=== PATIENT | female | born 1960 | race Caucasian/White ===

== ENCOUNTER 2018-10-10 08:00 | Outpatient (CLI) | payer MEDICAID ==
[2018-10-10 11:59] LABS: BASOPHILS # (AUTO) 0.1 10^3/uL (0.0-0.1); EOSINOPHILS # (AUTO) 0.1 10^3/uL (0.0-0.7); EOSINOPHILS % (AUTO) 1.2 %; LYMPHOCYTES # (AUTO) 1.4 10^3/uL (1.5-3.5); LYMPHOCYTES % (AUTO) 28.7 %; MEAN CORPUSCULAR HEMOGLOBIN 29.1 pg (27.0-31.0); MEAN CORPUSCULAR HGB CONC 32.4 g/dL (32.0-36.0); MEAN CORPUSCULAR VOLUME 89.8 fL (81.0-99.0); MEAN PLATELET VOLUME 10.4 fL (7.9-10.8); MONOCYTES # (AUTO) 0.3 10^3/uL (0.0-1.0); MONOCYTES % (AUTO) 5.3 %; NEUTROPHILS # (AUTO) 3.1 10^3/uL (1.5-6.6); NEUTROPHILS % (AUTO) 63.6 %; PLT - PLATELET COUNT 227 10^3/uL (130-450); RED BLOOD COUNT 4.81 10^6/uL (4.20-5.40); RED CELL DISTRIBUTION WIDTH 13.2 % (12.0-15.0); WHITE BLOOD COUNT 4.9 x10^3/uL (4.8-10.8)
[2018-10-10 12:13] LABS: BUN - BLOOD UREA NITROGEN 18 mg/dL (6-20); CALCIUM 9.3 mg/dL (8.5-10.3); CARBON DIOXIDE - CO2 26 mmol/L (21-32); CHLORIDE 105 mmol/L (101-111); CHOL/HDL RATIO 3.7 (<4.4); CHOLESTEROL 238 mg/dL; CREATININE 0.9 mg/dL (0.4-1.0); GFR - MDRD 65 (>89); GLUCOSE 96 mg/dL (70-100); HDL CHOLESTEROL 65 mg/dL; LDL CHOLESTEROL,CALCULATED 149 mg/dL; LDL/HDL RATIO 2.3 (<4.4); SODIUM 141 mmol/L (135-145); VLDL CHOLESTEROL 24 mg/dL
== END 2018-10-10 23:59 | disposition home or self-care (01) ==
LOC: LAB.N 08:00 → MERGE 09:41 → LAB.N 23:59
PROVIDERS: ATTEND Physician Assistant Medical
DX: E03.9 Hypothyroidism, unspecified (principal); E78.5 Hyperlipidemia, unspecified; F41.9 Anxiety disorder, unspecified
CPT/HCPCS: 36415; 80048; 80061; 83721; 84443; 85025

== ENCOUNTER 2018-10-10 12:36 | Outpatient (CLI) | payer MEDICAID ==
--- NOTE | 2018-10-11 09:13 | XRAY Report ---
Reason: PAIN IN R SHOULDER Procedure Date: 10/10/2018 Accession Number: [id number] / [id number] Procedure: XRN - Shoulder 2 View RT CPT Code: FULL RESULT: EXAM: RIGHT SHOULDER RADIOGRAPHY EXAM DATE: 10/10/2018 01:04 PM. CLINICAL HISTORY: Pain in right shoulder. COMPARISON: None. TECHNIQUE: 3 views. FINDINGS: Bones: No fracture or bone lesion. Joints: There is slightly widening of the acromiohumeral space, suspicious for shoulder joint effusion; otherwise, glenohumeral and acromioclavicular joints are within normal limits. Soft tissues: The visualized hemithorax is unremarkable. No soft tissue swelling or periarticular calcification. IMPRESSION: Probable small shoulder joint effusion without bony lesion or significant degenerative arthritis, nonspecific finding. RADIA
--- NOTE | 2018-10-11 09:13 | XRAY Report ---
Reason: KNEE PAIN Procedure Date: 10/10/2018 Accession Number: [id number] / [id number] Procedure: XRN - Knee 3 View BILAT CPT Code: FULL RESULT: EXAMS: 1. Right Knee Radiography 2. Left Knee Radiography EXAM DATE:10/10/2018 01:20 PM. CLINICAL HISTORY:Knee pain bilaterally for 6 months. COMPARISON: None. TECHNIQUE: 3 views each. FINDINGS: Right Knee: Bones: No fractures or bone lesions. Joints: Minimally diminished joint space with tiny periarticular spurring in the patellotrochleal space visualized; otherwise, no significant degenerative process. No effusion. No subluxations. Soft Tissues: No soft tissue swelling or calcification. Left Knee: Bones: No fractures or bone lesions. Joints: Minimally diminished joint space with tiny periarticular spurring in the patellotrochleal space visualized; otherwise, no significant degenerative process. No effusion. No subluxations. Soft Tissues: No soft tissue swelling or calcification. 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 RADIA
== END 2018-10-10 12:37 | disposition home or self-care (01) ==
LOC: DI.N 12:36
PROVIDERS: ATTEND Physician Assistant Medical
DX: M25.511 Pain in right shoulder (principal); M17.0 Bilateral primary osteoarthritis of knee

== ENCOUNTER 2018-10-25 15:19 | Outpatient (CLI) | payer MEDICAID ==
--- NOTE | 2018-11-08 10:28 | Mammography Report ---
Reason: SCREENING MAMMO Procedure Date: 10/25/2018 Accession Number: [id number] / [id number] Procedure: MGN - Screening Mammo Dig Bilat CPT Code: FULL RESULT: EXAM: Screening Mammo Dig Bilat DATE: 10/25/2018 3:46 PM CLINICAL HISTORY: Routine screening TECHNIQUE: (B) - Bilateral CC and MLO views were obtained. COMPARISON: None available. PARENCHYMAL PATTERN: (A) - The breasts demonstrate scattered fibroglandular densities bilaterally. FINDINGS: There are no suspicious calcifications or areas of distortion. In the immediate retroareolar right breast a faint nodular density is seen. A faint asymmetric density is also seen in the inferior medial midportion of the right breast, question skin related. Both breasts need repeat imaging for nipple in profile. IMPRESSION: Incomplete examination. BI-RADS category 0. RECOMMENDATION: (ADDMAM) - Recommend additional mammographic views. Bilateral true lateral views with nipple in profile. Additional spot compression views right breast. BI-RADS CATEGORY: (0) - Incomplete Examination - need additional evaluation. STANDARD QUALIFYING STATEMENTS: 1. This examination was not reviewed with the aid of Computer-Aided Detection (CAD). 2. A negative or benign imaging report should not preclude biopsy if clinically suspicious findings are present. 3. Dense breasts may obscure an underlying neoplasm. 4. This examination was reviewed without the aid of 3D breast imaging (tomosynthesis).
== END 2018-10-25 15:20 | disposition home or self-care (01) ==
LOC: DI.N 15:19
PROVIDERS: ATTEND Physician Assistant Medical
DX: Z12.31 Encounter for screening mammogram for malignant neoplasm of breast (principal); R92.8 Other abnormal and inconclusive findings on diagnostic imaging of breast
CPT/HCPCS: 77067

== ENCOUNTER 2018-11-27 07:07 | Outpatient (CLI) | payer MEDICAID ==
[2018-11-27 12:48] LABS: CHOL/HDL RATIO 2.3 (<4.4); CHOLESTEROL 155 mg/dL; HDL CHOLESTEROL 67 mg/dL; LDL CHOLESTEROL,CALCULATED 72 mg/dL; LDL/HDL RATIO 1.1 (<4.4); VLDL CHOLESTEROL 16 mg/dL
== END 2018-11-27 23:59 ==
LOC: LAB.N 07:07
PROVIDERS: ATTEND Physician Assistant Medical
DX: E78.5 Hyperlipidemia, unspecified (principal)
CPT/HCPCS: 36415; 80061; 83721

== ENCOUNTER 2019-11-21 10:42 | Outpatient (CLI) | payer MEDICAID ==
--- NOTE | 2019-11-21 16:39 | XRAY Report ---
PROCEDURE: Shoulder 3 View RT INDICATIONS: RIGHT SHOULDER PAIN TECHNIQUE: 30 views of the shoulder were acquired. COMPARISON: None. FINDINGS: Bones: Mild to moderate osteolytic changes of the glenohumeral and acromioclavicular joints with join t space narrowing and osteophytosis. Somewhat amorphous calcification in the superior acromial clavic ular joint space at the expected insertion site of the supraspinatus/infraspinatus tendons may repres ent calcific tendinosis or potentially a loose body. Soft tissues: No suspicious soft tissue calcifi cations. IMPRESSION: Degenerative changes in the glenohumeral and acromioclavicular joints with suspected loo se body versus calcific tendinosis. MRI or CT of the right shoulder is recommended. Reviewed by: Rafa Arreola MD on 11/21/2019 4:37 PM PDT Approved by: Rafa Arreola MD on 11/21/2019 4:37 PM PDT Station ID: [id number]
== END 2019-11-21 10:43 | disposition home or self-care (01) ==
LOC: DI.WCP 10:42
PROVIDERS: ATTEND Physician Assistant
DX: M19.011 Primary osteoarthritis, right shoulder (principal); R93.6 Abnormal findings on diagnostic imaging of limbs

== ENCOUNTER 2019-12-27 12:38 | Emergency (ER) | payer MEDICAID ==
--- NOTE | 2019-12-27 13:20 | ED Physician Documentation ---
PD HPI OPHTHO - Stated complaint Stated Complaint: EYE INFECTION - Chief complaint Chief Complaint: Heent - History obtained from History obtained from: Patient - Additional information Additional information: She developed a painful lesion that was quite painful on the left cheek about December 04. Subsequently got other lesions on the left upper lip and developed pain and clear drainage of the left eye without visual deficit. She has been on first doxycycline, later Augmentin and tobramycin drops without improvement. Review of Systems Constitutional: denies: Fever, Chills Ears: denies: Loss of hearing, Ear pain Nose: denies: Rhinorrhea / runny nose, Congestion PD PAST MEDICAL HISTORY - Allergies Allergies/Adverse Reactions: Allergies Allergy/AdvReac Type Severity Reaction Status Date / Time No Known Drug Allergies Allergy Verified 12/27/19 12:50 PD ED PE NORMAL - Vitals Vital signs reviewed: Yes - General General: Alert and oriented X 3, No acute distress - HEENT HEENT: PERRL, EOMI, Other (Chemosis of the left eye, there is no fluorescein uptake. She has resolving small vesicular lesions of the left side of the face, upper lip and cheek most consistent with shingles.) - Neck Neck: Supple, no meningeal sign, No bony TTP - Neuro Neuro: Alert and oriented X 3, No motor deficit, No sensory deficit, Normal speech Results - Vitals Vitals: Vital Signs - 24 hr 12/27/19 12/27/19 12:42 13:48 Temperature 36.8 C Heart Rate 87 88 Respiratory 17 16 Rate Blood Pressure 107/72 111/70 O2 Saturation 96 98 Oxygen O2 Source Room air PD MEDICAL DECISION MAKING - ED course ED course: Sounds like resolving shingles as opposed to a bacterial infection to me, it has been almost 2-1/2 weeks, so it does not have the typical appearance anymore. I do not see anything that looks like a bacterial infection though and she is well treated for same after 2 rounds of oral antibiotics and drops. We will send a VZV IgM for further elucidation. She understands that we will be done today and she will need to follow-up with her doctor for results. Departure - Departure Disposition: 01 Home, Self Care Clinical Impression: Facial rash Condition: Good Record reviewed to determine appropriate education?: Yes Instructions: ED Shingles Comments: As discussed, to me this month looks more like resolving shingles as opposed to a bacterial infection. I do not think further antibiotics are necessary at this juncture, but return if worse. Call your doctor on Monday, let her know that we sent off a send out VZV IgM for further elucidation for evaluation of whether or not you have had a recent varicella infection as I suspect this is. Discharge Date/Time: 12/27/19 13:48
[2019-12-27 13:48] VITALS: BP 111/70
== END 2019-12-27 13:48 | disposition home or self-care (01) ==
LOC: ED 12:38
DX: R21 Rash and other nonspecific skin eruption (principal); H57.12 Ocular pain, left eye; H11.422 Conjunctival edema, left eye
CPT/HCPCS: 36415; 86787; 99282; 99283

== ENCOUNTER 2020-06-25 08:56 | Outpatient (CLI) | payer MEDICAID ==
[2020-06-25 12:22] LABS: BASOPHILS # (AUTO) 0.1 10^3/uL (0.0-0.1); BASOPHILS % (AUTO) 1.2 %; EOSINOPHILS # (AUTO) 0.1 10^3/uL (0.0-0.7); EOSINOPHILS % (AUTO) 0.9 %; HCT - HEMATOCRIT 42.3 % (37.0-47.0); HGB - HEMOGLOBIN 13.8 g/dL (12.0-16.0); LYMPHOCYTES # (AUTO) 1.8 10^3/uL (1.5-3.5); LYMPHOCYTES % (AUTO) 31.1 %; MEAN CORPUSCULAR HEMOGLOBIN 29.4 pg (27.0-31.0); MEAN CORPUSCULAR HGB CONC 32.6 g/dL (32.0-36.0); MEAN CORPUSCULAR VOLUME 90.2 fL (81.0-99.0); MEAN PLATELET VOLUME 10.3 fL (7.9-10.8); MONOCYTES # (AUTO) 0.3 10^3/uL (0.0-1.0); MONOCYTES % (AUTO) 5.1 %; NEUTROPHILS # (AUTO) 3.6 10^3/uL (1.5-6.6); NEUTROPHILS % (AUTO) 61.4 %; PLT - PLATELET COUNT 227 10^3/uL (130-450); RED BLOOD COUNT 4.69 10^6/uL (4.20-5.40); WHITE BLOOD COUNT 5.9 x10^3/uL (4.8-10.8)
[2020-06-25 12:59] LABS: ALBUMIN 4.4 g/dL (3.2-5.5); ALBUMIN/GLOBULIN RATIO 1.7 (1.0-2.2); ALKALINE PHOSPHATASE 54 IU/L (42-121); ALT ALANINE AMINOTRANSFERASE 15 IU/L (10-60); AST ASPARTATE AMINOTRANSFERASE 19 IU/L (10-42); BILIRUBIN,TOTAL 0.6 mg/dL (0.2-1.0); BUN - BLOOD UREA NITROGEN 18 mg/dL (6-20); CALCIUM 9.6 mg/dL (8.5-10.3); CARBON DIOXIDE - CO2 29 mmol/L (21-32); CHLORIDE 106 mmol/L (101-111); CHOL/HDL RATIO 3.1 (<4.4); CHOLESTEROL 232 mg/dL; CREATININE 0.9 mg/dL (0.4-1.0); GFR - MDRD 64 (>89); GLUCOSE 103 mg/dL (70-100); HDL CHOLESTEROL 75 mg/dL; LDL CHOLESTEROL,CALCULATED 138 mg/dL; LDL/HDL RATIO 1.8 (<4.4); POTASSIUM 4.1 mmol/L (3.5-5.0); SODIUM 144 mmol/L (135-145); TRIGLYCERIDES 96 mg/dL; VLDL CHOLESTEROL 19 mg/dL
[2020-06-25 13:01] LABS: THYROID STIMULATING HORMONE 1.65 uIU/mL (0.34-5.60)
== END 2020-06-25 08:57 | disposition home or self-care (01) ==
LOC: LAB.N 08:56
PROVIDERS: ATTEND Registered Nurse
DX: Z01.812 Encounter for preprocedural laboratory examination (principal); S46.091S Other injury of muscle(s) and tendon(s) of the rotator cuff of right shoulder, sequela; E03.9 Hypothyroidism, unspecified; E78.00 Pure hypercholesterolemia, unspecified; F41.9 Anxiety disorder, unspecified; M75.31 Calcific tendinitis of right shoulder; M75.41 Impingement syndrome of right shoulder
CPT/HCPCS: 36415; 80053; 80061; 83721; 84443; 85025

== ENCOUNTER 2020-06-25 09:51 | Outpatient (CLI) | payer MEDICAID ==
--- NOTE | 2020-06-25 14:50 | XRAY Report ---
PROCEDURE: Shoulder 3 View RT INDICATIONS: CALCIFIC TENDONITIS OF RIGHT SHOULDER TECHNIQUE: 4 views of the shoulder were acquired. COMPARISON: 11/21/2019 FINDINGS: Bones: No acute fractures or dislocations. As before, there are mild-moderate osteoarthritic changes involving the right acromioclavicular and glenohumeral joints. There is persistent amorphous soft ti ssue calcifications in the superolateral aspect of the humeral head in the subacromial space and is c onsistent with calcific tendinosis. Intra-articular loose body remains in the differential. No suspic ious bony lesions. Visualized ribs appear intact. Soft tissues: No suspicious soft tissue calcifications. IMPRESSION: 1. Stable degenerative changes of the right glenohumeral and acromioclavicular joints. 2. Redemonstration of soft tissue calcifications within the subacromial space consistent with calcifi c tendinosis versus intra-articular loose body. Consider further evaluation with MRI. Reviewed by: Laz Pelaez MD on 06/25/2020 2:48 PM PDT Approved by: Laz Pelaez MD on 06/25/2020 2:48 PM PDT Station ID: [id number]
== END 2020-06-25 23:59 | disposition home or self-care (01) ==
LOC: DI.N 09:51
PROVIDERS: ATTEND Orthopaedic Surgery
DX: Z01.812 Encounter for preprocedural laboratory examination (principal); M19.011 Primary osteoarthritis, right shoulder; R93.6 Abnormal findings on diagnostic imaging of limbs; S46.091S Other injury of muscle(s) and tendon(s) of the rotator cuff of right shoulder, sequela; E03.9 Hypothyroidism, unspecified; E78.00 Pure hypercholesterolemia, unspecified; F41.9 Anxiety disorder, unspecified; M75.31 Calcific tendinitis of right shoulder; M75.41 Impingement syndrome of right shoulder
CPT/HCPCS: 36415; 80053; 80061; 83721; 84443; 85025

== ENCOUNTER 2020-07-10 09:12 | Outpatient (CLI) | payer MEDICAID | END 2020-07-10 09:13 | disposition home or self-care (01) | LOC: LAB.N 09:12 | PROVIDERS: ATTEND Orthopaedic Surgery | DX: Z01.812 Encounter for preprocedural laboratory examination (principal); Z20.822 Contact with and (suspected) exposure to COVID-19 ==

== ENCOUNTER 2020-07-15 10:35 | Day surgery (SDC) | payer MEDICAID ==
[~2020-07-15 10:35] MED LIST: ACETAMINOPHEN 1,000 MG/100 ML 100 ML IV ONE; CELECOXIB 100 MG CAPSULE PO ONE; ceFAZolin 2 GM/50 ML 2 GM/50 ML BAG IV ONE
--- OUTSIDE RECORDS SUMMARY | 2020-07-15 10:38 | EXTERNAL MEDICAL SUMMARY RPT | Continuity of Care Document ---
:1960 Demographics Phone Unavailable Preferred Language Brazilian Marital Status Unknown Confucianist Affiliation Unknown Race Unknown Ethnic Group Unknown Author Organization [place] Address [address] [phone] Phone Care Team Providers Name Role Phone Katus Unavailable Unavailable Allergies Encounters Medications Problems date description facility [id number] Impingement syndrome of [facility] Results
[2020-07-15] MEDS ORDERED: EPINEPHrine 1 MG/ML AMP ONE (10:48)
[2020-07-15] MEDS ORDERED: LACTATED RINGERS 1,000 ML IV ONE ×2 (10:50→13:42)
[2020-07-15] MEDS ORDERED: MIDAZOLAM 2 MG/2 ML VIAL ONE (11:01)
[2020-07-15] MEDS ORDERED: fentaNYL 100 MCG/2 ML VIAL ONE (11:01)
[2020-07-15] MEDS ORDERED: ROPIVACAINE 0.5% PF 20 ML AMPULE ONE (11:02)
[2020-07-15] MEDS ORDERED: DEXAMETHASONE 4 MG/ML VIAL ONE (11:02)
[2020-07-15] MEDS ORDERED: PROPOFOL 200 MG/20 ML VIAL IVP ONE (11:09)
[2020-07-15] MEDS ORDERED: LIDOCAINE-MPF 2% 5 ML VIAL ONE (11:09)
[2020-07-15] MEDS ORDERED: ROCURONIUM 50 MG/5 ML VIAL ONE (11:10)
[2020-07-15] MEDS ORDERED: KETOROLAC 15 MG/ML VIAL IVP STA (11:20)
[2020-07-15] MEDS ORDERED: oxyCODONE 5 MG TABLET PO PRN (11:20)
[2020-07-15] MEDS ORDERED: HYDROmorphone 0.5 MG/0.5 ML SYRINGE IVP PRN (11:32)
[2020-07-15] MEDS ORDERED: fentaNYL 100 MCG/2 ML VIAL IVP PRN (11:32)
[2020-07-15] MEDS ORDERED: MORPHINE 2 MG/ML CARPUJECT IVP PRN (11:32)
[2020-07-15] MEDS ORDERED: ONDANSETRON 4 MG/2 ML VIAL IVP PRN (11:32)
[2020-07-15] MEDS ORDERED: ATROPINE ABBOJECT 1 MG/10 ML SYRINGE IVP PRN (11:32)
[2020-07-15] MEDS ORDERED: NALOXONE 0.4 MG/ML VIAL IVP PRN (11:32)
--- NOTE | 2020-07-15 11:32 | ANESTHESIA ---
Pre-Anesthesia VS, & Labs - Diagnosis right shoulder calcific tendonitis - Procedure right shoulder arthroscopy and debridement Height: 5 ft 6 in Weight (kg): 84.1 kg Body Mass Index: 29.9 BMI Classification: Overweight - NPO >8 hours - Is Patient ?: No - Lab Results Current Lab Results: Laboratory Tests 07/15/20 11:07: POC Whole Bld Glucose 106 H Home Medications and Allergies Home Medications: Ambulatory Orders Acetaminophen [Tylenol] 650 mg PO Q6H PRN 07/07/20 Levothyroxine [Synthroid] 112 mcg PO QDAC 07/07/20 Omeprazole 40 mg PO DAILY 07/07/20 Pravastatin Sodium [Pravachol] 40 mg PO QPM 07/07/20 Sertraline HCl 100 mg PO DAILY 07/07/20 traZODone [Desyrel] 50 mg PO HS 07/07/20 Active Medications Oxycodone HCl (Oxycodone 5 Mg Tablet) 5 mg PO Q4HR PRN PRN Reason: PAIN Acetaminophen [Tylenol] 650 mg PO Q6H PRN 07/07/20 Levothyroxine [Synthroid] 112 mcg PO QDAC 07/07/20 Omeprazole 40 mg PO DAILY 07/07/20 Pravastatin Sodium [Pravachol] 40 mg PO QPM 07/07/20 Sertraline HCl 100 mg PO DAILY 07/07/20 traZODone [Desyrel] 50 mg PO HS 07/07/20 Allergies/Adverse Reactions: Allergies Allergy/AdvReac Type Severity Reaction Status Date / Time No Known Drug Allergies Allergy Verified 12/27/19 12:50 Anes History & Medical History - Anesthetic History Anesthesia Complications: reports: No previous complications - Medical History Cardiovascular: reports: High cholesterol Pulmonary: reports: None Gastrointestinal: reports: GERD Urinary: reports: None, Other Neuro: reports: None Musculoskeletal: reports: Osteoarthritis Endocrine/Autoimmune: reports: HyPOthyroidism Blood Disorders: reports: None Skin: reports: None Smoking Status: Never smoker Psychosocial: reports: Alcohol (glass of wine nightly), Cannabis (occasional edible) - Surgical History General: reports: Cholecystectomy Eyes Ears Nose Throat (EENT): reports: Tonsil/Adenoidectomy Gynecologic: reports: section, Hysterectomy, Oophrectomy, Other Exam General: Alert, Oriented x3, Cooperative, No acute distress Dental: WNL Mouth Openin Fingerbreadth Neck Mobility: Normal Mallampati classification: II Thyromental Distance: 4-6 cm Mental/Cognitive Status: Alert/Oriented X3, Normal for patient Plan Anesthesia Type: General, Interscalene Block (right) Regional Block: Per Surgeon's request for Post Op pain control Consent for Procedure(s) Verified and Reviewed: Yes Code Status: Attempt Resuscitation ASA classification: 2-Mild systemic disease Is this case an emergency?: No
[2020-07-15] MEDS ORDERED: LACTATED RINGERS 1,000 ML IV SCH (12:00)
[2020-07-15] MEDS ORDERED: PHENYLEPHRINE 10 MG/ML VIAL ONE (12:46)
[2020-07-15] MEDS ORDERED: SEVOFLURANE 250 ML LIQUID INH ONE (13:06)
[2020-07-15] MEDS ORDERED: EPINEPHrine 1 MG/ML AMP IR ONE (13:26)
--- NOTE | 2020-07-15 13:33 | OPERATIVE REPORT ---
Operative Report - General Procedure Date: 07/15/20 Planned Procedure: Arthroscopy right shoulder, debridement of calcific deposit and possible rotator cuff repair Pre-Op Diagnosis: Calcific tendinitis right shoulder Procedure Performed: Arthroscopy right shoulder, debridement of glenohumeral labrum and subacromial decompression with debridement of calcific deposit supraspinatus tendon Post Op Diagnosis: Same as preoperative diagnosis - Procedure Note Primary Surgeon: Tony Starr MD Secondary Surgeon: Devon SANTO, Tavares SANTO Anesthesia Technique: General ET tube, Regional block Estimated Blood Loss (mL): 10 Indications: This is a 60-year-old with chronic and recurrent intense pain to the anterolateral right shoulder. She has had conservative treatment including steroid injections in the past without permanent relief. She has painful movement of the shoulder, tenderness over the greater tuberosity, good strength. Routine radiographs show a calcific deposit near the supraspinatus insertion of the greater tuberosity. Her MRI scan did not show sign of any full-thickness rotator cuff tear but did show some partial tearing of rotator cuff. Findings: The articular surfaces of the humeral head head and glenoid appeared normal. There was some fraying of the anterior and superior labrum. The biceps tendon was intact. The glenohumeral ligaments appeared normal. The subscapularis appeared normal the footprint of the rotator cuff appeared normal. The teres minor and posterior cuff were intact. The glenoid labrum was circumferentially intact.The subacromial space showed subacromial bursal proliferation consistent with subacromial bursitis. There was fraying of the bursal side of the rotator cuff but no sign of complete tear or repairable tear. There was a calcific deposit that was expressed using a 18-gauge spinal needle to puncture of the tendon and calcium deposit. Multiple small particulate white calcium appearing deposits were liberated with the spinal needle and then flushed out of the joint area - Other Other Information/Narrative: The patient was brought to the operating room and given a general endotracheal anesthetic. She was then placed in a beachchair positioner with protective face mask and headgear. The right shoulder and right upper extremity were prepped and draped in a sterile manner in the usual fashion. A timeout procedure was performed by the entire operating room team and all were in agreement. The bony landmarks of the right shoulder were outlined with a sterile marking pen. A posterior portal was established, entering the glenohumeral joint with a blunt trocar. The [place] 4 mm 3 degree of black diagnostic arthroscope in conjunction with [employer] video camera was introduced. The Arthrex arthroscopic pump was utilized for inflow and was brought through the arthroscope. Complete diagnostic arthroscopy was performed. An anterior portal was established in the safe triangle and a cannula was introduced through this portal. The glenoid labrum had fraying and this was gently debrided with the Arthrex radiofrequency probe. All other intra-articular inspection was normal. The subacromial space was entered posteriorly to visualize the subacromial space. The lateral subacromial portal was established and bursal resection was performed using the Arthrex radiofrequency probe, 90 degree. The greater tuberosity was visualized and there was some subtle changes of discoloration near the supraspinatus region to suggest a calcium deposit location. This area was then probed with a spinal needle and calcium deposit was liberated. Multiple punctures of the calcium deposit were performed and irrigated out of the subacromial space with either the radiofrequency probe or a smooth shaver. The incision sites were closed with 3-0 nylon, dry sterile dressing and sling applied. She tolerated the procedure well.Physician assistant passenger locomotive engineer was utilized to facilitate holding the arm in the appropriate position, draping, closure and facilitating use of scope and arthroscopic instruments.
[2020-07-15] MEDS ORDERED: KETOROLAC 15 MG/ML VIAL ONE (14:44)
[2020-07-15 16:26] VITALS: BP 97/76
--- NOTE | 2020-07-15 19:31 | ANESTHESIA POST OP EVALUATION ---
Anesthesia Post Eval - Post Anesthesia Eval Vitals: Last Vital Signs Temp 36.3 C L 07/15/20 16:24 Pulse 76 07/15/20 16:24 Resp 16 07/15/20 16:24 BP 97/76 07/15/20 16:24 Pulse Ox 96 07/15/20 16:24 CV Function Including HR & BP: Stable Pain Control: Satisfactory Nausea & Vomiting: Negative Mental Status: Baseline Respiratory Status: Airway Patent Hydration Status: Satisfactory Anesthesia Complications: None
== END 2020-07-15 10:36 | disposition home or self-care (01) ==
LOC: SDS 10:35
PROVIDERS: ATTEND Orthopaedic Surgery
PROC: 0RNJ4ZZ Release Right Shoulder Joint, Percutaneous Endoscopic Approach (ICD-10-PCS; principal; 2020-07-15 11:30)
DX: M75.31 Calcific tendinitis of right shoulder (principal); E66.3 Overweight; Z68.29 Body mass index [BMI] 29.0-29.9, adult
CPT/HCPCS: 29822; A9270; C1713; J0131; J0690; J3490; J7120

== ENCOUNTER 2021-01-04 10:27 | Outpatient (CLI) | payer MEDICAID ==
--- NOTE | 2021-01-04 12:32 | XRAY Report ---
PROCEDURE: Shoulder 3 View RT INDICATIONS: CALCIFIC TENDINITIS OF R SHOULDER TECHNIQUE: 4 views of the shoulder were acquired. COMPARISON: June 25, 2020. FINDINGS: BONES: No acute, displaced fracture or dislocation. Moderate joint space loss and osteophytosis of the AC joint. Suggestion of acromion osteophytosis. Mi ld narrowing of the glenohumeral joint. SOFT TISSUES: No focal abnormality or appreciable pneumothorax. Faint increased density overlying the humeral head, which may reflect residual calcific tendinopathy. IMPRESSION: 1.Interval improvement calcific tendinopathy of the rotator cuff. Reviewed by: Jeremie Graham MD on 01/04/2021 12:30 PM PST Approved by: Jeremie Graham MD on 01/04/2021 12:30 PM [facility] Station ID: [id number]
== END 2021-01-04 23:59 | disposition home or self-care (01) ==
LOC: DI.N 10:27
PROVIDERS: ATTEND Orthopaedic Surgery
DX: M75.31 Calcific tendinitis of right shoulder (principal)

== ENCOUNTER 2021-06-14 13:09 | Outpatient (CLI) | payer MEDICAID ==
--- NOTE | 2021-06-14 17:07 | XRAY Report ---
PROCEDURE: Hand 3 View LT INDICATIONS: L HAND PX TECHNIQUE: 3 views of the hand(s) acquired. COMPARISON: None FINDINGS: Bones: No fractures or dislocations. No suspicious bony lesions. Soft tissues: No suspicious soft tissue calcifications. IMPRESSION: No fracture. No osseous lesion. If there are persistent symptoms or continued clinical concern for pa thology, then repeat plain film radiographs (7-10 days) or advanced imaging (CT, MR, bone scan) shoul d be considered for further evaluation. Reviewed by: Delmi Gonzalez MD, PhD on 06/14/2021 5:06 PM PDT Approved by: Delmi Gonzalez MD, PhD on 06/14/2021 5:06 PM PDT Station ID: [id number]
== END 2021-06-14 23:59 | disposition home or self-care (01) ==
LOC: DI.N 13:09
PROVIDERS: ATTEND Physician Assistant Medical
DX: M79.642 Pain in left hand (principal); S69.92XA Unspecified injury of left wrist, hand and finger(s), initial encounter

== ENCOUNTER 2021-08-30 07:36 | Outpatient (CLI) | payer MEDICAID ==
[2021-08-30 11:28] LABS: BASOPHILS # (AUTO) 0.1 10^3/uL (0.0-0.1); BASOPHILS % (AUTO) 1.3 %; EOSINOPHILS # (AUTO) 0.1 10^3/uL (0.0-0.7); EOSINOPHILS % (AUTO) 1.1 %; HCT - HEMATOCRIT 41.9 % (37.0-47.0); HGB - HEMOGLOBIN 13.7 g/dL (12.0-16.0); LYMPHOCYTES # (AUTO) 1.8 10^3/uL (1.5-3.5); LYMPHOCYTES % (AUTO) 33.6 %; MEAN CORPUSCULAR HEMOGLOBIN 29.7 pg (27.0-31.0); MEAN CORPUSCULAR HGB CONC 32.7 g/dL (32.0-36.0); MEAN CORPUSCULAR VOLUME 90.9 fL (81.0-99.0); MEAN PLATELET VOLUME 10.9 fL (7.9-10.8); MONOCYTES # (AUTO) 0.3 10^3/uL (0.0-1.0); MONOCYTES % (AUTO) 6.1 %; NEUTROPHILS % (AUTO) 57.7 %; PLT - PLATELET COUNT 207 10^3/uL (130-450); RED BLOOD COUNT 4.61 10^6/uL (4.20-5.40); RED CELL DISTRIBUTION WIDTH 13.7 % (12.0-15.0); WHITE BLOOD COUNT 5.2 x10^3/uL (4.8-10.8)
[2021-08-30 11:49] LABS: ALBUMIN 4.2 g/dL (3.2-5.5); ALBUMIN/GLOBULIN RATIO 1.6 (1.0-2.2); ALKALINE PHOSPHATASE 58 IU/L (42-121); ALT ALANINE AMINOTRANSFERASE 15 IU/L (10-60); AST ASPARTATE AMINOTRANSFERASE 18 IU/L (10-42); BILIRUBIN,TOTAL 0.5 mg/dL (0.2-1.0); BUN - BLOOD UREA NITROGEN 23 mg/dL (6-20); CALCIUM 9.8 mg/dL (8.5-10.3); CARBON DIOXIDE - CO2 28 mmol/L (21-32); CHLORIDE 107 mmol/L (101-111); CHOL/HDL RATIO 3.7 (<4.4); CHOLESTEROL 236 mg/dL; GFR - MDRD 57 (>89); GLUCOSE 102 mg/dL (70-100); HDL CHOLESTEROL 64 mg/dL; LDL CHOLESTEROL,CALCULATED 142 mg/dL; LDL/HDL RATIO 2.2 (<4.4); POTASSIUM 4.2 mmol/L (3.5-5.0); SODIUM 142 mmol/L (135-145); TOTAL PROTEIN 6.8 g/dL (6.7-8.2); TRIGLYCERIDES 149 mg/dL; VLDL CHOLESTEROL 30 mg/dL
[2021-08-30 11:57] LABS: THYROID STIMULATING HORMONE 3.49 uIU/mL (0.34-5.60)
[2021-08-30 11:59] LABS: FREE T4 (FREE THYROXINE) 1.03 ng/dL (0.58-1.64)
[2021-08-30 13:02] LABS: ESTIMATED AVERAGE GLUCOSE 111 mg/dL (70-100); HEMOGLOBIN A1c% 5.5 % (4.27-6.07)
== END 2021-08-30 07:37 | disposition home or self-care (01) ==
LOC: LAB.N 07:36
PROVIDERS: ATTEND Physician Assistant
DX: E03.9 Hypothyroidism, unspecified (principal); E78.5 Hyperlipidemia, unspecified
CPT/HCPCS: 36415; 80053; 80061; 83036; 83721; 84439; 84443; 85025

== ENCOUNTER 2021-10-15 06:57 | Outpatient (CLI) | payer MEDICAID ==
--- NOTE | 2021-10-15 12:32 | Ultrasound Report ---
PROCEDURE: Chest INDICATIONS: MOBILE MASS JUST ABOVE RIGHT CLAVICLE TECHNIQUE: Real-time scanning was performed, and a suitable site was marked by the correspondence specialist for thoracentesis to be performed by the referring clinician. COMPARISON: None. FINDINGS: A 5.5 x 1.0 x 5.9 cm hypoechoic mass is seen in the subcutaneous tissue in the right subcla vicular area corresponding with the area of concern consistent with a lipoma. No increased vascularit y is seen. IMPRESSION: Lipoma in the soft tissues of the right supraclavicular region. Reviewed by: Tenzin Garcia on 10/15/2021 12:31 PM PDT Approved by: Tenzin Garcia on 10/15/2021 12:31 PM PDT Station ID: [id number]
== END 2021-10-15 06:58 | disposition home or self-care (01) ==
LOC: DI 06:57
PROVIDERS: ATTEND Physician Assistant
DX: R59.0 Localized enlarged lymph nodes (principal); D17.1 Benign lipomatous neoplasm of skin and subcutaneous tissue of trunk

== ENCOUNTER 2022-09-15 09:57 | Outpatient (CLI) | payer MEDICAID ==
[2022-09-15 10:10] LABS: BASOPHILS # (AUTO) 0.1 10^3/uL (0.0-0.1); BASOPHILS % (AUTO) 1.1 %; EOSINOPHILS % (AUTO) 0.8 %; HCT - HEMATOCRIT 42.3 % (37.0-47.0); HGB - HEMOGLOBIN 13.8 g/dL (12.0-16.0); LYMPHOCYTES # (AUTO) 1.9 10^3/uL (1.5-3.5); LYMPHOCYTES % (AUTO) 36.7 %; MEAN CORPUSCULAR HEMOGLOBIN 30.2 pg (27.0-31.0); MEAN CORPUSCULAR HGB CONC 32.6 g/dL (32.0-36.0); MEAN CORPUSCULAR VOLUME 92.6 fL (81.0-99.0); MEAN PLATELET VOLUME 9.5 fL (7.9-10.8); MONOCYTES # (AUTO) 0.2 10^3/uL (0.0-1.0); MONOCYTES % (AUTO) 4.3 %; NEUTROPHILS % (AUTO) 56.7 %; PLT - PLATELET COUNT 219 10^3/uL (130-450); RED BLOOD COUNT 4.57 10^6/uL (4.20-5.40); RED CELL DISTRIBUTION WIDTH 12.4 % (12.0-15.0); WHITE BLOOD COUNT 5.3 x10^3/uL (4.8-10.8)
[2022-09-15 10:33] LABS: ALBUMIN 4.3 g/dL (3.2-5.5); ALKALINE PHOSPHATASE 53 IU/L (42-121); ALT ALANINE AMINOTRANSFERASE 15 IU/L (10-60); AST ASPARTATE AMINOTRANSFERASE 16 IU/L (10-42); BILIRUBIN,TOTAL 0.4 mg/dL (0.2-1.0); BUN - BLOOD UREA NITROGEN 20 mg/dL (6-20); CALCIUM 9.7 mg/dL (8.5-10.3); CARBON DIOXIDE - CO2 31 mmol/L (21-32); CHLORIDE 106 mmol/L (101-111); CHOL/HDL RATIO 3.4 (<4.4); CHOLESTEROL 190 mg/dL; GFR - MDRD 56 (>89); GLUCOSE 100 mg/dL (74-104); HDL CHOLESTEROL 56 mg/dL; LDL CHOLESTEROL,CALCULATED 110 mg/dL; POTASSIUM 4.5 mmol/L (3.5-4.5); SODIUM 141 mmol/L (135-145); TOTAL PROTEIN 6.5 g/dL (6.4-8.9); TRIGLYCERIDES 120 mg/dL (48-352); VLDL CHOLESTEROL 24 mg/dL
[2022-09-15 10:48] LABS: THYROID STIMULATING HORMONE 3.86 uIU/mL (0.34-5.60)
== END 2022-09-15 09:58 | disposition home or self-care (01) ==
LOC: LAB 09:57
PROVIDERS: ATTEND Physician Assistant
DX: E78.5 Hyperlipidemia, unspecified (principal); E03.9 Hypothyroidism, unspecified; K21.9 Gastro-esophageal reflux disease without esophagitis
CPT/HCPCS: 36415; 80053; 80061; 83721; 84443; 85025

== ENCOUNTER 2022-10-31 06:22 | Day surgery (SDC) | payer MEDICAID ==
[~2022-10-31 06:22] MED LIST changes: -ACETAMINOPHEN 1,000 MG/100 ML 100 ML IV ONE; +ACETAMINOPHEN 500 MG TABLET PO ONE; -CELECOXIB 100 MG CAPSULE PO ONE; +ceFAZolin 2 GM VIAL ONE; -ceFAZolin 2 GM/50 ML 2 GM/50 ML BAG IV ONE
[2022-10-31] MEDS ORDERED: LACTATED RINGERS 1,000 ML IV ONE ×2 (06:54→08:15)
[2022-10-31] MEDS ORDERED: ONDANSETRON 4 MG/2 ML VIAL IVP PRN (07:10)
[2022-10-31] MEDS ORDERED: fentaNYL 100 MCG/2 ML VIAL IVP PRN (07:10)
[2022-10-31] MEDS ORDERED: NALOXONE 0.4 MG/ML VIAL IVP PRN (07:10)
[2022-10-31] MEDS ORDERED: ePHEDrine 50 MG/ML VIAL IVP PRN (07:10)
[2022-10-31] MEDS ORDERED: HYDROmorphone 0.5 MG/0.5 ML SYRINGE IVP PRN (07:10)
[2022-10-31] MEDS ORDERED: ATROPINE ABBOJECT 1 MG/10 ML SYRINGE IVP PRN (07:10)
--- NOTE | 2022-10-31 07:10 | ANESTHESIA ---
Pre-Anesthesia VS, & Labs - Diagnosis r shoulder mass - Procedure r shoulder mass excision Vital Signs: Temp Pulse Resp BP Pulse Ox O2 Flow Rate 36.4 C L 63 12 113/77 96 10/31/22 06:39 10/31/22 06:39 10/31/22 06:39 10/31/22 06:39 10/31/22 06:39 Height: 5 ft 6 in Weight (kg): 78.7 kg Body Mass Index: 28.0 BMI Classification: Overweight - NPO >8 hours - Is Patient ?: No - Lab Results Lab results reviewed: Yes Home Medications and Allergies Home Medications: Ambulatory Orders Ferrous Fumarate/Ascorbic Acid [Tato-Sequels 65-25 mg Caplet] 1 each PO DAILY 10/28/22 Naproxen 250 mg PO Q6HR PRN 10/28/22 Vitamin B Complex 1 each PO DAILY 10/28/22 Levothyroxine [Synthroid] 112 mcg PO QDAC 07/07/20 Omeprazole 40 mg PO DAILY 07/07/20 Pravastatin Sodium [Pravachol] 40 mg PO QPM 07/07/20 Sertraline HCl 100 mg PO DAILY 07/07/20 traZODone [Desyrel] 50 mg PO HS 07/07/20 Ferrous Fumarate/Ascorbic Acid [Tato-Sequels 65-25 mg Caplet] 1 each PO DAILY 10/28/22 Naproxen 250 mg PO Q6HR PRN 10/28/22 Vitamin B Complex 1 each PO DAILY 10/28/22 Allergies/Adverse Reactions: Allergies Allergy/AdvReac Type Severity Reaction Status Date / Time No Known Drug Allergies Allergy Verified 12/27/19 12:50 Anes History & Medical History - Anesthetic History Anesthesia Complications: reports: No previous complications Family history of Anesthesia Complications: Denies Family history of Malignant Hyperthermia: Denies - Medical History Cardiovascular: reports: High cholesterol Pulmonary: reports: None Gastrointestinal: reports: GERD (w/c) Urinary: reports: None Neuro: reports: None Musculoskeletal: reports: Osteoarthritis Endocrine/Autoimmune: reports: HyPOthyroidism Blood Disorders: reports: None Skin: reports: None Smoking Status: Never smoker - Surgical History General: reports: Cholecystectomy Eyes Ears Nose Throat (EENT): reports: Tonsil/Adenoidectomy Gynecologic: reports: section, Hysterectomy, Oophrectomy, Other Exam General: Alert, Oriented x3, Cooperative Dental: WNL Mouth Openin Fingerbreadth Neck Mobility: Normal Mallampati classification: I Thyromental Distance: 4-6 cm Respiratory: Lungs clear Cardiovascular: Regular rate Plan Anesthesia Type: General, MAC Consent for Procedure(s) Verified and Reviewed: Yes Code Status: Attempt Resuscitation ASA classification: 2-Mild systemic disease Is this case an emergency?: No
[2022-10-31] MEDS ORDERED: LIDOCAINE 1%-EPI 1:100000 20 ML MDV ONE (07:14)
[2022-10-31] MEDS ORDERED: BUPIVACAINE 0.5% PF 10 ML VIAL ONE (07:14)
[2022-10-31] MEDS ORDERED: PROPOFOL 500 MG/50 ML 500 MG/50 ML VIAL ONE (07:22)
[2022-10-31] MEDS ORDERED: MIDAZOLAM 2 MG/2 ML VIAL ONE (07:36)
[2022-10-31] MEDS ORDERED: LIDOCAINE MPF 2%-EPI 1:200000 20 ML VIAL SUBQ ONE ×2 (07:50)
[2022-10-31] MEDS ORDERED: BUPIVACAINE 0.5% PF 30 ML VIAL SUBQ ONE ×2 (07:51)
[2022-10-31] MEDS ORDERED: LACTATED RINGERS 1,000 ML IV SCH (08:00)
[2022-10-31] MEDS ORDERED: IBUPROFEN 600 MG TABLET PO PRN (08:19)
[2022-10-31] MEDS ORDERED: ACETAMINOPHEN 500 MG TABLET PO PRN (08:19)
--- NOTE | 2022-10-31 08:22 | OPERATIVE REPORT ---
Operative Report - General Procedure Date: 10/31/22 Planned Procedure: excision right anterior shoulder mass Pre-Op Diagnosis: right shoulder mass Procedure Performed: excision right anterior shoulder mass Post Op Diagnosis: right shoulder mass, consistent with lipoma - Procedure Note Primary Surgeon: Dr. Anna Marie Garnica MD Anesthesia Provider: Valentín Dennis CRNA Anesthesia Technique: Local, MAC Pathology: right anterior shoulder mass, oriented short superior, long lateral, double anterior Estimated Blood Loss (mL): 5 Indications: The patient has a right anterior shoulder mass which she has noticed to be present for at least a year and a half. She does not feel like it has changed significantly in size. She denies any difficulty in moving her shoulder secondary to the mass. Her father had a similar mass which was diagnosed as a sarcoma on excision. Due to anxiety about the etiology of the mass, the patient has elected to have it excised. We discussed the risks, benefits, and alternatives of excision including bleeding, infection, damage to surrounding structures, the need for further surgeries or procedures, and recurrence of the mass requiring reexcision. The patient voiced understanding, her questions were answered, and she wished to proceed. A consent was signed by the patient prior to surgery. Findings: 1.6 x 5 x 1.5 cm mass consistent with lipoma, oriented short superior, long lateral, double anterior Complications: None - Other Other Information/Narrative: The patient was taken to the operating room and placed in the supine position. Preop antibiotics were given. ERAS medications were given. The patient was prepped and draped in the usual sterile fashion. A preop surgical timeout was performed. An incision was planned following the natural skin folds, in the axial orientation, overlying the mass, along the anterior shoulder, just inferior to the clavicle. The skin and subcutaneous tissues were injected with local anesthetic. The incision was made with a 15 blade scalpel and carried down through the skin and subcutaneous tissue to the level of the mass. The mass was identified and gently grasped with a [place] clamp. It was then freed from the surrounding tissues. Once the mass was free, it was removed, oriented, and sent to pathology for permanent sections. It appeared to be consistent with a lipoma. Excellent hemostasis was confirmed in the mass cavity and the area was irrigated with warm normal saline. Then, the deep dermal tissues were reapproximated with 3-0 Vicryl. Finally, the skin edges were reapproximated with 4-0 Monocryl in a running subcuticular fashion. A sterile dressing of skin glue was placed. The patient tolerated the procedure well there were no complications. She was haji sferred to the recovery room in stable condition.
[2022-10-31 08:31] VITALS: O2SAT 100
[2022-10-31 08:52] VITALS: BP 117/72
--- NOTE | 2022-10-31 09:50 | ANESTHESIA POST OP EVALUATION ---
Anesthesia Post Eval - Post Anesthesia Eval Vitals: Last Vital Signs Temp 36.2 C L 10/31/22 08:49 Pulse 76 10/31/22 08:49 Resp 15 10/31/22 08:49 BP 117/72 10/31/22 08:49 Pulse Ox 100 10/31/22 08:49 O2 Flow Rate CV Function Including HR & BP: Stable Pain Control: Satisfactory Nausea & Vomiting: Negative Mental Status: Baseline Respiratory Status: Airway Patent Hydration Status: Satisfactory Anesthesia Complications: None
== END 2022-10-31 06:23 | disposition home or self-care (01) ==
LOC: SDS 06:22
PROVIDERS: ATTEND Surgery
PROC: 0JBD0ZZ Excision of Right Upper Arm Subcutaneous Tissue and Fascia, Open Approach (ICD-10-PCS; principal; 2022-10-31 07:30)
DX: D17.21 Benign lipomatous neoplasm of skin and subcutaneous tissue of right arm (principal); F41.9 Anxiety disorder, unspecified; K21.9 Gastro-esophageal reflux disease without esophagitis; E03.9 Hypothyroidism, unspecified; E78.5 Hyperlipidemia, unspecified; Z79.890 Hormone replacement therapy; Z79.899 Other long term (current) drug therapy; Z80.9 Family history of malignant neoplasm, unspecified
CPT/HCPCS: 23071; A9270; J7120

== ENCOUNTER 2022-11-08 08:20 | Outpatient (CLI) | payer MEDICAID ==
--- NOTE | 2022-11-09 10:23 | Mammography Report ---
BILATERAL DIGITAL SCREENING MAMMOGRAM 3D/2D: 11/08/2022 CLINICAL: Routine screening. Comparison is made to exams dated: 10/25/2018 mammogram and 03/19/2014 mammogram - [facility]. Both breasts are almost entirely fatty (category a/<25% glandular tissue). No significant masses, calcifications, or other findings are seen in either breast. There has been no significant interval change. IMPRESSION: NEGATIVE There is no mammographic evidence of malignancy. A 1 year screening mammogram is recommended. Based on the Tyrer Cuzick model (a risk assessment model) the patients lifetime risk is 4.4% and her 10 year risk is 1.8%. According to the ACR, ACS, and NCCN guidelines, an annual breast MRI exam kellie g with mammogram is recommended if the patients lifetime risk is 20% or greater. This exam was interpreted at Station ID: [id number]. NOTE: For mammograms, a report in lay terms will be sent to the patient. Approximately 15% of breast malignancies will not be visualized mammographically. In the management of a palpable breast mass, a negative mammogram must not discourage biopsy of a clinically suspicious lesion. Electronically Signed By: Estefany Cook M.D. esb/penrad:11/08/2022 14:24:40 letter sent: No_Letter ACR BI-RADS Category 1: Negative 3341F PARENCHYMAL PATTERN: (F) - The breast(s) demonstrate(s) diffuse fatty replacement. BI-RADS CATEGORY: (1) - 1 Mammogram [id number] 1 year screening LATERALITY: (B)
== END 2022-11-08 08:21 | disposition home or self-care (01) ==
LOC: DI.N 08:20
DX: Z12.31 Encounter for screening mammogram for malignant neoplasm of breast (principal)

== ENCOUNTER 2023-08-14 10:37 | Outpatient (CLI) | payer MEDICAID ==
--- NOTE | 2023-08-14 13:35 | XRAY Report ---
PROCEDURE: Chest 2V INDICATIONS: ACUTE COUGH TECHNIQUE: 2 views of the chest were acquired. COMPARISON: None. FINDINGS: Surgical changes and devices: None. Lungs and pleura: No pleural effusions or pneumothorax. Lungs are clear. Mediastinum: Mediastinal contours appear normal. Heart size is normal. Bones and chest wall: No suspicious bony lesions. Overlying soft tissues appear unremarkable. IMPRESSION: No acute cardiopulmonary process. Reviewed by: Ronan Gamble MD on 08/14/2023 1:33 PM PDT Approved by: Ronan Gamble MD on 08/14/2023 1:33 PM PDT Station ID: [id number]
== END 2023-08-14 10:38 | disposition home or self-care (01) ==
LOC: DI.N 10:37
PROVIDERS: ATTEND Physician Assistant Medical
DX: R05.1 Acute cough (principal)

== ENCOUNTER 2023-10-12 12:15 | Outpatient (CLI) | payer MEDICAID ==
--- NOTE | 2023-10-12 20:53 | XRAY Report ---
PROCEDURE: Hand 3+V BL INDICATIONS: BILATERAL HAND PAIN TECHNIQUE: 3 views of both hands acquired. COMPARISON: Right hand radiographs 11/10/2022 and left hand radiographs 06/14/2021. FINDINGS: Bones: No acute fractures or dislocations. No suspicious bony lesions. Multifocal joint space fer rowing is seen most notably at the 1st carpometacarpal joint and the interphalangeal joints of the fi ngers. No significant involvement of the metacarpophalangeal joints. No focal osseous erosion is seen . 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 Soft tissues: No suspicious soft tissue calcifications. No focal nodular soft tissue swelling. IMPRESSION: Mild to moderate multifocal arthritic changes, most compatible with osteoarthrosis. No radiographic s igns of an inflammatory arthritis. Reviewed by: Jed Segundo MD on 10/12/2023 8:52 PM PDT Approved by: Jed Segundo MD on 10/12/2023 8:52 PM PDT Station ID: [id number]
== END 2023-10-12 12:16 | disposition home or self-care (01) ==
LOC: DI 12:15
PROVIDERS: ATTEND Physician Assistant Surgical
DX: M19.041 Primary osteoarthritis, right hand (principal); M19.042 Primary osteoarthritis, left hand; M18.0 Bilateral primary osteoarthritis of first carpometacarpal joints